=== PATIENT | male | born 2005 | race African-American/Black ===

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

== ENCOUNTER 2023-10-20 19:02 | Emergency (ER) | payer BC, SELFPAY ==
[2023-10-20] MEDS ORDERED: Ibuprofen 200 MG TAB ONE (21:57)
== END 2023-10-20 21:59 | disposition home or self-care (01) ==
LOC: ERS 19:02
DX: K08.89 Other specified disorders of teeth and supporting structures (principal)
CPT/HCPCS: 99282

== ENCOUNTER 2024-01-03 15:15 | Emergency (ER) | payer SELFPAY | END 2024-01-03 16:53 | disposition left against medical advice (07) | LOC: ERS 15:15 | DX: Z53.21 Procedure and treatment not carried out due to patient leaving prior to being seen by health care provider (principal) ==

== ENCOUNTER 2024-03-28 15:22 | Emergency (ER) | payer SELFPAY | END 2024-03-28 16:42 | disposition home or self-care (01) | LOC: ERS 15:22 | DX: L02.411 Cutaneous abscess of right axilla (principal) | CPT/HCPCS: 99282 ==